=== PATIENT | male | born 1985 | race Two or more races ===

== ENCOUNTER 2023-01-30 16:35 | Outpatient (REF) | payer OTHER, SELFPAY ==
[2023-01-30 17:43] LABS: Basophils Percent Auto 0.7 % (0-2); Eosinophils Absolute Auto 0.2 X10*3/uL (0.0-0.4); Eosinophils Percent Auto 5.2 % (0-4); Hematocrit 40.9 % (42.0-52.0); Hemoglobin 14.3 g/dl (14.0-18.0); Lymphocytes Absolute Auto 1.9 X10*3/uL (1.2-4.9); Lymphocytes Percent Auto 62.7 % (20-40); MANUAL DIFF FLAG SCAN; Mean Corpuscular Hemoglobin 32.1 pg (27.0-33.0); Mean Corpuscular Volume 91.7 fL (80.0-98.0); Mean Platelet Volume 9.6 fL (9.4-12.4); Monocytes Absolute Auto 0.3 X10*3/uL (0.1-1.2); Monocytes Percent Auto 9.5 % (2-11); Neutrophils Absolute Auto 0.7 x10*3/uL (2.0-8.3); Neutrophils Percent Auto 21.9 % (45-73); Platelet Count 214 X10*3/uL (160-400); Red Blood Count 4.46 X10*6/uL (4.60-5.80); Red Cell Distribution Width 12.9 % (11.0-16.0); SCAN SMEAR FLAG 1; White Blood Count 3.1 X10*3/uL (4.8-10.8)
[2023-01-30 18:15] LABS: Alanine Aminotransferase 26 U/L (0-40); Albumin Level 4.3 g/dL (3.5-5.0); Alkaline Phosphatase 75 U/L (39-117); Anion Gap 12 (12-20); Aspartate Amino Transferase 27 U/L (5-37); Bilirubin Total 0.5 mg/dL (0.0-1.0); Blood Urea Nitrogen 14 mg/dL (9-16); Calcium 9.5 mg/dL (8.4-10.2); Carbon Dioxide 28 mmol/L (22-29); Chloride 101 mmol/L (96-108); Estimated Glomerular Filt Rate > 60; Glucose Random 90 mg/dL (60-115); Potassium 3.9 mmol/L (3.3-5.1); Sodium 137 mmol/L (135-145); Total Protein 7.9 g/dL (6.5-8.0)
[2023-01-30 18:53] LABS: SLIDE REVIEW VERIFIED
[2023-02-02 07:44] LABS: Absolute CD3 Count 1370 cells/uL (840-3060); Absolute CD4 Count 475 cells/uL (490-1740); Absolute CD8 Count 834 cells/uL (180-1170); Absolute Lymphocytes 2041 cells/uL (850-3900); CD4 CD8 Ratio 0.57 (0.86-5.00); Percent CD3 Cells 67 % (57-85); Percent CD4 Cells 23 % (30-61); Percent CD8 Cells 41 % (12-42)
[2023-02-04 19:48] LABS: HIV RNA PCR Qn Copies NOT DETECTED copies/mL (NOT DETECTED); HIV RNA PCR Qn Log Copies NOT DETECTED (NOT DETECTED)
== END 2023-01-30 16:36 | disposition home or self-care (01) ==
LOC: HO.HHCL 16:35
PROVIDERS: Visit Provider Student in an Organized Health Care Education/Training Program
DX: B20 Human immunodeficiency virus [HIV] disease (principal)
CPT/HCPCS: 36415; 80053; 85025; 86359; 86360; 87536

== ENCOUNTER 2023-09-04 12:32 | Outpatient (REF) | payer OTHER, SELFPAY ==
[2023-09-04 14:01] LABS: Basophils Percent Auto 0.7 % (0-2); Eosinophils Absolute Auto 0.1 X10*3/uL (0.0-0.4); Eosinophils Percent Auto 4.7 % (0-4); Hematocrit 42.6 % (42.0-52.0); Hemoglobin 14.8 g/dl (14.0-18.0); Lymphocytes Percent Auto 66.6 % (20-40); MANUAL DIFF FLAG SCAN; Mean Corpuscular HGB Conc 34.7 g/dl (31.0-36.0); Mean Corpuscular Hemoglobin 32.9 pg (27.0-33.0); Mean Corpuscular Volume 94.7 fL (80.0-98.0); Mean Platelet Volume 10.1 fL (9.4-12.4); Monocytes Absolute Auto 0.3 X10*3/uL (0.1-1.2); Monocytes Percent Auto 10.4 % (2-11); Neutrophils Absolute Auto 0.5 x10*3/uL (2.0-8.3); Neutrophils Percent Auto 17.6 % (45-73); Platelet Count 219 X10*3/uL (160-400); Red Cell Distribution Width 13.1 % (11.0-16.0); SCAN SMEAR FLAG 1
[2023-09-04 14:20] LABS: SLIDE REVIEW VERIFIED
[2023-09-04 16:27] LABS: Alanine Aminotransferase 29 U/L (0-40); Albumin Level 4.2 g/dL (3.5-5.0); Alkaline Phosphatase 69 U/L (39-117); Anion Gap 8 (12-20); Aspartate Amino Transferase 36 U/L (5-37); Bilirubin Total 0.6 mg/dL (0.0-1.0); Blood Urea Nitrogen 12 mg/dL (9-16); Calcium 9.4 mg/dL (8.4-10.2); Carbon Dioxide 31 mmol/L (22-29); Chloride 104 mmol/L (96-108); Cholesterol 237 mg/dL (<200); Estimated Glomerular Filt Rate > 60; Glucose Random 97 mg/dL (60-115); HDL Cholesterol 40 mg/dL (>40); LDL Cholesterol Calculated 172 mg/dL (<100); Potassium 3.7 mmol/L (3.3-5.1); Sodium 139 mmol/L (135-145); Total Protein 7.7 g/dL (6.5-8.0); Triglycerides 126 mg/dL (<150)
[2023-09-04 16:49] LABS: Reflex LDLD? No
[2023-09-05 03:40] LABS: Syphilis Screen Reactive (Nonreactive)
[2023-09-05 04:21] LABS: ~HepC Num1 0.11 S/CO (0.00-0.79); ~Hepatitis C Antibody Nonreactive (Nonreactive)
[2023-09-05 10:08] LABS: CT PCR NOT DETECTED (Not Detect.); NG PCR NOT DETECTED (Not Detect.)
[2023-09-07 11:03] LABS: Absolute CD3 Count 1316 cells/uL (840-3060); Absolute CD4 Count 453 cells/uL (490-1740); Absolute CD8 Count 790 cells/uL (180-1170); Absolute Lymphocytes 1943 cells/uL (850-3900); CD4 CD8 Ratio 0.57 (0.86-5.00); Percent CD3 Cells 68 % (57-85); Percent CD4 Cells 23 % (30-61); Percent CD8 Cells 41 % (12-42)
[2023-09-07 13:02] LABS: TS Negative Control Passed; TS Panel A 0; TS Panel B 0; TS Positive Control Passed; TSpotTB Negative (Negative)
[2023-09-07 14:37] LABS: HIV RNA PCR Qn Copies NOT DETECTED copies/mL (NOT DETECTED); HIV RNA PCR Qn Log Copies NOT DETECTED (NOT DETECTED)
[2023-09-09 15:01] LABS: RPR Quantitative Non-Reactive (Nonreactive)
[2023-09-09 15:02] LABS: T.Pallidum Particle Agg Test Reactive (Nonreactive)
== END 2023-09-04 12:33 | disposition home or self-care (01) ==
LOC: HO.HHCL 12:32
PROVIDERS: Visit Provider Student in an Organized Health Care Education/Training Program
DX: B20 Human immunodeficiency virus [HIV] disease (principal)
CPT/HCPCS: 0353U; 36415; 80053; 80061; 85025; 86359; 86360; 86481; 86592; 86780; 86803; 87536

== ENCOUNTER 2023-10-26 10:52 | Outpatient (REF) | payer OTHER, SELFPAY ==
[2023-10-26 13:19] LABS: CT PCR NOT DETECTED (Not Detect.); NG PCR NOT DETECTED (Not Detect.)
[2023-10-27 07:41] LABS: ~HepC Num1 0.13 S/CO (0.00-0.79); ~Hepatitis C Antibody Nonreactive (Nonreactive)
[2023-10-27 07:43] LABS: HBS Num1 > 1000.00 mIU/mL (0-7.99); HBsAGNum1 0.23 S/CO (0.00-0.99); Hepatitis B Core Antibody Nonreactive (Nonreactive); Hepatitis B Surface Antigen Negative (Negative); ~Hepatitis B Surface Antibody REACTIVE (Nonreactive)
[2023-10-27 07:48] LABS: Syphilis Screen Reactive (Nonreactive)
[2023-10-29 18:19] LABS: C. Trachomatis RNA TMA, Throat NOT DETECTED; N. gonorrhoeae RNA TMA, Throat NOT DETECTED
[2023-10-30 02:43] LABS: C.Trachomatis RNA TMA, Rectal NOT DETECTED; N.Gonorrhoeae RNA TMA, Rectal NOT DETECTED
[2023-10-30 14:51] LABS: RPR Quantitative Non-Reactive (Nonreactive); T.Pallidum Particle Agg Test Reactive (Nonreactive)
== END 2023-10-26 10:53 | disposition home or self-care (01) ==
LOC: HO.HHCL 10:52
PROVIDERS: Visit Provider Student in an Organized Health Care Education/Training Program
DX: B20 Human immunodeficiency virus [HIV] disease (principal)
CPT/HCPCS: 0353U; 36415; 86592; 86704; 86706; 86780; 86803; 87340; 87491; 87591; 88112

== ENCOUNTER 2023-10-30 16:07 | Outpatient (REF) | payer OTHER, SELFPAY | END 2023-10-30 16:08 | disposition home or self-care (01) | LOC: HO.HHCLNP 16:07 | PROVIDERS: Visit Provider Family Medicine | DX: R14.0 Abdominal distension (gaseous) (principal) | CPT/HCPCS: 87338 ==

== ENCOUNTER 2024-01-14 18:38 | Outpatient (REF) | payer OTHER, SELFPAY | END 2024-01-14 18:39 | disposition home or self-care (01) | LOC: HO.HHCLNP 18:38 | PROVIDERS: Visit Provider Internal Medicine | DX: B20 Human immunodeficiency virus [HIV] disease (principal); R85.619 Unspecified abnormal cytological findings in specimens from anus | CPT/HCPCS: 88112 ==

== ENCOUNTER 2024-01-25 15:25 | Outpatient (AMB) | payer OTHER, SELFPAY ==
--- NOTE | 2024-01-25 15:23 | A.OFFVIS_ITS ---
Vital Signs 01/25/24 15:34 Height 5 ft 6 in Weight 176 lb 6 oz BMI 28.5 BP 106/58 L Blood Pressure Location Lt brachial Position Sitting Pulse 66 Intake Visit Reasons: Abnormal anal pap, HIV infection Intake Note: Patient is seen in office for evaluation of an abnormal anal pap, HIV infection. 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 He has known HIV so therefore had a Pap smear his anus. He denies any complaints with regards to his anus at this time. He denies any bleeding or pain He admits to anoreceptive intercourse. He says his viral loads have been undetectable. [facility] Medical History (Updated 01/25/24 @ 15:55 by Parrish Grace MD) Low grade squamous intraepith lesion on cytologic smear anus (lgsil) Family History Paternal Uncle Testicular cancer Social History Alcohol intake: current Patient Tobacco Use Status: Never used Tobacco Review of Systems Const Denies chills and Denies fever(s) Card Denies chest pain, Denies dyspnea and Denies dyspnea on exertion Resp Denies cough, Denies dyspnea and Denies dyspnea on exertion GI Denies hematochezia and Denies change in bowel habits Denies hematuria and Denies difficulty urinating Musc Denies back pain and Denies limited range of motion Neuro Denies focal weakness and Denies convulsions Psych Denies depression and Denies mood swings Physical Exam Const General: comfortable and no acute distress Orientation/consciousness: patient oriented x3 Neck Neck: Yes no lymphadenopathy Resp Auscultation: clear to auscultation bilaterally Cardio Rhythm: regular rhythm GI Other: Rectal exam does not reveal any perianal lesions Palpation (GI): Soft to palpation, nontender and no guarding Neuro General: patient oriented x3 Office Procedures Anoscopy He was in carlitos-knife position. The anoscope was gently inserted. A full examination of the anal canal was done. He did have some small internal external hemorrhoids on the left and right side. There were no lesions seen. There was no abnormality of the anal mucosa and anoderm. There was no fissure or ulceration. There was no induration on digital exam. There was no bleeding. [id number] Assessment & Plan Assessment & Plan (1) Low grade squamous intraepith lesion on cytologic smear anus (lgsil): Code(s): R85.612 - Low grade squamous intraepithelial lesion on cytologic smear of anus (LGSIL) Category: Medical Plan: He had an anal Pap showing low-grade squamous intraepithelial lesion. Current anoscopy does not reveal any gross lesions or abnormality In view of his HIV history, I have recommended repeating his colonoscopy in about 6 months. I also advised him on the benefits of protected anal intercourse He seems to have a good understanding of the above. Coding Level of Care Code New Pt Level 3 (02563) Diagnoses Low grade squamous intraepith lesion on cytologic smear anus (lgsil) R85.612 CPT Codes Details - CPT: [id number] ([id number])
[2024-01-25 15:34] VITALS: BP 106/58; PULSE 66; BMI 28.5
== END 2024-01-25 15:48 | disposition home or self-care (01) ==
PROVIDERS: PCP Student in an Organized Health Care Education/Training Program; Visit Provider Surgery
DX: R85.612 Low grade squamous intraepithelial lesion on cytologic smear of anus (LGSIL) (principal); K64.8 Other hemorrhoids
CPT/HCPCS: 46600; 99203

== ENCOUNTER → 2024-01-25 15:25 | Outpatient (BNVA) | payer OTHER, SELFPAY | PROVIDERS: PCP Student in an Organized Health Care Education/Training Program; Visit Provider Surgery | DX: R85.612 Low grade squamous intraepithelial lesion on cytologic smear of anus (LGSIL) (principal); K64.4 Residual hemorrhoidal skin tags; K64.8 Other hemorrhoids; Z21 Asymptomatic human immunodeficiency virus [HIV] infection status | CPT/HCPCS: 46600 ==

== ENCOUNTER 2024-05-20 13:22 | Outpatient (REF) | payer OTHER, SELFPAY ==
[2024-05-20 16:11] LABS: MANUAL DIFF FLAG NO
[2024-05-20 16:19] LABS: Basophils Percent Auto 0.6 % (0-2); Eosinophils Absolute Auto 0.2 X10*3/uL (0.0-0.4); Hematocrit 43.9 % (42.0-52.0); Hemoglobin 15.5 g/dl (14.0-18.0); Imm Gran Abs Auto 0.01 X10*3/uL (0.00-0.03); Imm Gran Pct Auto 0.2 % (0.0-0.4); Lymphocytes Absolute Auto 2.4 X10*3/uL (1.2-4.9); Lymphocytes Percent Auto 46.7 % (20-40); Mean Corpuscular HGB Conc 35.3 g/dl (31.0-36.0); Mean Corpuscular Hemoglobin 32.8 pg (27.0-33.0); Mean Platelet Volume 9.9 fL (9.4-12.4); Monocytes Absolute Auto 0.5 X10*3/uL (0.1-1.2); Monocytes Percent Auto 10.5 % (2-11); Platelet Count 236 X10*3/uL (160-400); Red Blood Count 4.72 X10*6/uL (4.60-5.80); Red Cell Distribution Width 12.3 % (11.0-16.0); White Blood Count 5.1 X10*3/uL (4.8-10.8)
[2024-05-20 16:29] LABS: Estimated Average Glucose 103 mg/dL; Hemoglobin A1C 132.0196 umol/L; Hemoglobin A1c % 5.2 % (<6.0); Total Hemoglobin (HGBA1C) 4007.4015 umol/L
[2024-05-20 16:31] LABS: Appearance Urine Clear; Color Urine Yellow; Glucose Urine UA Negative (Negative); Leukocyte Esterase Urine Negative (Negative); Nitrite Urine Negative (Negative); Urine Blood Negative (Negative); Urine Ketones Negative (Negative); Urine Protein Negative (Neg-Trace)
[2024-05-20 16:36] LABS: Bacteria Urine None Seen (None Seen); Hyaline Casts Urine 0-2 /LPF (0-2); RBC Urine 0-2 /HPF (0-2); Squamous Epithelial Cell Urine 0-2 /HPF (0-2); WBC Urine 0-5 /HPF (0-5)
[2024-05-20 17:15] LABS: Alanine Aminotransferase 51 U/L (0-40); Albumin Level 4.7 g/dL (3.5-5.0); Alkaline Phosphatase 82 U/L (39-117); Anion Gap 11 (12-20); Aspartate Amino Transferase 47 U/L (5-37); Bilirubin Total 0.8 mg/dL (0.0-1.0); Blood Urea Nitrogen 12 mg/dL (9-16); Calcium 9.7 mg/dL (8.4-10.2); Carbon Dioxide 29 mmol/L (22-29); Chloride 102 mmol/L (96-108); Estimated Glomerular Filt Rate > 60; Glucose Random 100 mg/dL (60-115); Potassium 3.8 mmol/L (3.3-5.1); Sodium 138 mmol/L (135-145); Total Protein 8.5 g/dL (6.5-8.0)
[2024-05-23 19:12] LABS: Rubella IgG Antibody 3.79 Index; Varicella IgG Antibody <1.00 S/CO
[2024-05-24 13:08] LABS: Absolute CD3 Count 1167 cells/uL (840-3060); Absolute CD4 Count 386 cells/uL (490-1740); Absolute CD8 Count 702 cells/uL (180-1170); Absolute Lymphocytes 1750 cells/uL (850-3900); CD4 CD8 Ratio 0.55 (0.86-5.00); Percent CD3 Cells 67 % (57-85); Percent CD4 Cells 22 % (30-61); Percent CD8 Cells 40 % (12-42)
[2024-05-25 18:48] LABS: HIV RNA PCR Qn Copies NOT DETECTED copies/mL (NOT DETECTED); HIV RNA PCR Qn Log Copies NOT DETECTED (NOT DETECTED)
== END 2024-05-20 13:23 | disposition home or self-care (01) ==
LOC: HO.HHCL 13:22
PROVIDERS: Visit Provider Student in an Organized Health Care Education/Training Program
DX: B20 Human immunodeficiency virus [HIV] disease (principal); Z13.1 Encounter for screening for diabetes mellitus
CPT/HCPCS: 36415; 80053; 81001; 83036; 85025; 86359; 86360; 86735; 86762; 86765; 86787; 87536

== ENCOUNTER 2024-07-25 15:35 | Outpatient (AMB) | payer OTHER, SELFPAY ==
--- NOTE | 2024-07-25 15:38 | MHC.OFFVIS ---
Vital Signs 07/25/24 15:45 Height 5 ft 6 in Weight 176 lb 5.987 oz BMI 28.5 Intake Visit Reasons: 6 mth f/u Abnormal anal pap, HIV infection Intake Note: This patient presents for six month follow-up for abnormal anal pap, HIV infection. Pt c/o; reports constipation, reports feels more gassy, reports no rectal bleeding. 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 I had done his anoscopy 6 months ago with unremarkable findings. He denies any significant complaints. He denies any bleeding, pain or discomfort in his anus. He has HIV but he is via load is undetectable. [facility] Medical History Low grade squamous intraepith lesion on cytologic smear anus (lgsil) Family History Paternal Uncle Testicular cancer Social History Alcohol intake: current Patient Tobacco Use Status: Never used Tobacco Review of Systems Const Denies chills and Denies fever(s) Card Denies chest pain, Denies dyspnea and Denies dyspnea on exertion Resp Denies cough, Denies dyspnea and Denies dyspnea on exertion GI Denies hematochezia and Denies change in bowel habits Denies hematuria and Denies difficulty urinating Musc Denies back pain and Denies limited range of motion Neuro Denies focal weakness and Denies convulsions Psych Denies depression and Denies mood swings Physical Exam Vital Signs: BMI result Body Mass Index 28.5 Const General: comfortable and no acute distress Orientation/consciousness: patient oriented x3 Neck Neck: Yes no lymphadenopathy Resp Auscultation: clear to auscultation bilaterally Cardio Rhythm: regular rhythm GI Other: Rectal exam shows no perianal lesions although he does have external hemorrhoids on the left Palpation (GI): Soft to palpation, nontender and no guarding Neuro General: patient oriented x3 Office Procedures Anoscopy He was in calritos-knife position. The anoscope was gently inserted. A full examination of the anal canal was done. Did not find any lesions. I did not see any polyps, or any mucosal abnormality. There was no induration. He did have internal and external hemorrhoids mostly on the left side. He did not have any significant tenderness. [id number] Assessment & Plan Assessment & Plan (1) Low grade squamous intraepith lesion on cytologic smear anus (lgsil): Code(s): R85.612 - Low grade squamous intraepithelial lesion on cytologic smear of anus (LGSIL) Category: Medical Plan: Follow-up anoscopy does not reveal any suggestion of any lesion in the anal canal or the perianal area. I told him that we will repeat the anoscopy in about 6 months. I advised him on the benefits of protected anal intercourse. He does state that his viral load is undetectable. He understands the plan. Coding Level of Care Code Est Pt Level 3 (24688) Diagnoses Low grade squamous intraepith lesion on cytologic smear anus (lgsil) R85.612 CPT Codes Details - CPT: [id number] ([id number])
[2024-07-25 15:45] VITALS: BMI 28.5
== END 2024-07-25 15:56 | disposition home or self-care (01) ==
PROVIDERS: PCP Student in an Organized Health Care Education/Training Program; Visit Provider Surgery
DX: R85.612 Low grade squamous intraepithelial lesion on cytologic smear of anus (LGSIL) (principal)
CPT/HCPCS: 46600; 99213

== ENCOUNTER → 2024-07-25 15:35 | Outpatient (BNVA) | payer OTHER, SELFPAY | PROVIDERS: PCP Student in an Organized Health Care Education/Training Program; Visit Provider Surgery | DX: R85.612 Low grade squamous intraepithelial lesion on cytologic smear of anus (LGSIL) (principal); B20 Human immunodeficiency virus [HIV] disease | CPT/HCPCS: 46600 ==

== ENCOUNTER 2024-12-16 12:06 | Outpatient (REF) | payer OTHER, SELFPAY ==
[2024-12-16 14:16] LABS: Hematocrit 44.1 % (42.0-52.0); Hemoglobin 15.6 g/dl (14.0-18.0); Imm Gran Abs Auto 0.01 X10*3/uL (0.00-0.03); Imm Gran Pct Auto 0.2 % (0.0-0.4); Lymphocytes Absolute Auto 2.7 X10*3/uL (1.2-4.9); MANUAL DIFF FLAG SCAN; Mean Corpuscular HGB Conc 35.4 g/dl (31.0-36.0); Mean Corpuscular Hemoglobin 32.0 pg (27.0-33.0); Mean Corpuscular Volume 90.4 fL (80.0-98.0); NRBC Abs Auto 0.000 X10*3/uL (0.0-0.012); NRBC Pct Auto 0.0 /100WBC (0.0-0.2); Platelet Count 220 X10*3/uL (160-400); Red Blood Count 4.88 X10*6/uL (4.60-5.80); SCAN SMEAR FLAG 1; White Blood Count 4.3 X10*3/uL (4.8-10.8)
[2024-12-16 14:57] LABS: Alanine Aminotransferase 44 U/L (0-40); Albumin Level 4.6 g/dL (3.5-5.0); Alkaline Phosphatase 76 U/L (39-117); Anion Gap 10 (12-20); Aspartate Amino Transferase 41 U/L (5-37); Blood Urea Nitrogen 15 mg/dL (9-16); Calcium 9.9 mg/dL (8.4-10.2); Carbon Dioxide 29 mmol/L (22-29); Chloride 101 mmol/L (96-108); Cholesterol 191 mg/dL (<200); Estimated Glomerular Filt Rate > 60; HDL Cholesterol 37 mg/dL (>40); Potassium 4.0 mmol/L (3.3-5.1); Sodium 136 mmol/L (135-145); Total Protein 8.3 g/dL (6.5-8.0); Triglycerides 166 mg/dL (<150)
[2024-12-16 18:16] LABS: Reflex LDLD? No
[2024-12-17 03:28] LABS: ~HepC Num1 0.29 S/CO (0.00-0.79); ~Hepatitis C Antibody Nonreactive (Nonreactive)
[2024-12-19 13:33] LABS: TS Negative Control Passed; TS Panel A 0; TS Panel B 0; TS Positive Control Passed; TSpotTB Negative (Negative)
[2024-12-19 16:24] LABS: HIV RNA PCR Qn Copies NOT DETECTED copies/mL (NOT DETECTED); HIV RNA PCR Qn Log Copies NOT DETECTED (NOT DETECTED)
[2024-12-21 16:19] LABS: Absolute CD3 Count 1877 cells/uL (840-3060); Absolute CD8 Count 1243 cells/uL (180-1170); Percent CD3 Cells 70 % (57-85); Percent CD8 Cells 46 % (12-42)
== END 2024-12-16 12:07 | disposition home or self-care (01) ==
LOC: HO.HHCL 12:06
PROVIDERS: PCP Student in an Organized Health Care Education/Training Program; Visit Provider Student in an Organized Health Care Education/Training Program
DX: B20 Human immunodeficiency virus [HIV] disease (principal); Z11.1 Encounter for screening for respiratory tuberculosis; Z11.3 Encounter for screening for infections with a predominantly sexual mode of transmission; Z11.59 Encounter for screening for other viral diseases
CPT/HCPCS: 36415; 80053; 80061; 85025; 86359; 86360; 86481; 86592; 86803; 87536

== ENCOUNTER 2025-02-06 15:22 | Outpatient (AMB) | payer OTHER, SELFPAY ==
[2025-02-06 15:31] VITALS: BP 113/65; PULSE 74; BMI 28.3
--- NOTE | 2025-02-06 15:31 | MHC.OFFVIS ---
Vital Signs 02/06/25 15:31 Height 5 ft 6 in Weight 175 lb 4 oz BMI 28.3 BP 113/65 Blood Pressure Location Rt brachial Position Sitting Pulse 74 Intake Visit Reasons: 6 mth f/u Abnormal anal pap, HIV infection Intake Note: Patient here for 6mo follow up Anoscopy. Patient c/o: no complaints. 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 I had done his anoscopy 6 months ago with unremarkable findings. He denies any significant complaints. He denies any bleeding, pain or discomfort in his anus. He has HIV but he is via load is undetectable. He says he CD4 count is now elevated. [facility] Medical History Low grade squamous intraepith lesion on cytologic smear anus (lgsil) Family History Paternal Uncle Testicular cancer Social History Alcohol intake: current Patient Tobacco Use Status: Never used Tobacco Review of Systems Const Denies chills and Denies fever(s) Card Denies chest pain, Denies dyspnea and Denies dyspnea on exertion Resp Denies cough, Denies dyspnea and Denies dyspnea on exertion GI Denies hematochezia and Denies change in bowel habits Denies hematuria and Denies difficulty urinating Musc Denies back pain and Denies limited range of motion Neuro Denies focal weakness and Denies convulsions Psych Denies depression and Denies mood swings Physical Exam Vital Signs: Last Vital Signs Pulse 74 02/06/25 15:31 BP 113/65 02/06/25 15:31 BMI result Body Mass Index 28.3 Const General: comfortable and no acute distress Orientation/consciousness: patient oriented x3 Neck Neck: Yes no lymphadenopathy Resp Auscultation: clear to auscultation bilaterally Cardio Rhythm: regular rhythm GI Other: Rectal exam shows a large external hemorrhoid, about 1 cm, nontender, noninflamed Palpation (GI): Soft to palpation, nontender and no guarding Neuro General: patient oriented x3 Office Procedures Anoscopy He was in kneeling carlitos-knife position. The anoscope was gently inserted. A full examination of the anal canal was done. There were no lesions in the anal canal. There was no evidence of any ulceration, fissure or any abnormal looking lining or mucosa. He did have an external hemorrhoid on the left side. There was no induration on digital exam and there was no bleeding. [id number] Assessment & Plan Assessment & Plan (1) Low grade squamous intraepith lesion on cytologic smear anus (lgsil): Code(s): R85.612 - Low grade squamous intraepithelial lesion on cytologic smear of anus (LGSIL) Category: Medical Plan: I did not see any evidence of any lesion grossly. There was no ulceration, fissure or any abnormal looking lining. He does have a external hemorrhoidal column on the left this has about 1 cm in size. He says that this has not bothering him and does not want to proceed with hemorrhoidectomy for now I will see him again in the office in about 6 months. Viral load remains undetectable. His CD4 count is now high. Coding Level of Care Code Est Pt Level 3 (75378) Diagnoses Low grade squamous intraepith lesion on cytologic smear anus (lgsil) R85.612 CPT Codes Details - CPT: [id number] ([id number])
== END 2025-02-06 15:44 | disposition home or self-care (01) ==
LOC: HO.HGS 15:23
PROVIDERS: PCP Student in an Organized Health Care Education/Training Program; Visit Provider Surgery
DX: R85.612 Low grade squamous intraepithelial lesion on cytologic smear of anus (LGSIL) (principal)
CPT/HCPCS: 46600; 99213

== ENCOUNTER → 2025-02-06 15:22 | Outpatient (BNVA) | payer OTHER, SELFPAY | PROVIDERS: PCP Student in an Organized Health Care Education/Training Program; Visit Provider Surgery | DX: R85.612 Low grade squamous intraepithelial lesion on cytologic smear of anus (LGSIL) (principal) | CPT/HCPCS: 46600 ==

== ENCOUNTER 2025-03-10 12:00 | Outpatient (REF) | payer OTHER, SELFPAY | END 2025-03-10 12:01 | disposition home or self-care (01) | LOC: HO.HHCL 12:00 | PROVIDERS: PCP Student in an Organized Health Care Education/Training Program; Referring Provider Family Medicine; Visit Provider Student in an Organized Health Care Education/Training Program | DX: R14.0 Abdominal distension (gaseous) (principal); Z86.19 Personal history of other infectious and parasitic diseases | CPT/HCPCS: 87338 ==